=== PATIENT | female | born 1995 | race Native Hawaiian/Other Pacific Islander ===

== ENCOUNTER 2017-05-22 13:57 | Emergency (ER) | payer MEDICAID ==
[2017-05-22] MEDS ORDERED: Zofran 4 MG/2 ML VIAL IV ONE (14:17)
[2017-05-22] MEDS ORDERED: Sodium Chloride 0.9% 1000 ML 1,000 ML ONE ×2 (14:21→15:10)
[2017-05-22] MEDS ORDERED: Zofran 4 MG/2 ML VIAL ONE (14:22)
[2017-05-22] MEDS: Sodium Chloride 0.9% 1000 ML 1,000 ML IV STA ×2 (14:23→15:12)
--- NOTE | 2017-05-22 14:25 | ERPHSYRPT ---
- History of Present Illness Time Seen by Provider: 05/22/17 14:10 Historian: patient Exam Limitations: clinical condition Patient Subjective Stated Complaint: 7 weeks --first . states has been vomiting daily since 05/11--past 48 hrs she states she is vomiting 10+ times a day. oral membranes dry. poor oral intake. skin pink and warm Triage Nursing Assessment: see above Physician History: PATIENT IS A -1, PARA-0, -0, 7 WEEKS GESTATION COMPLAINS OF FREQUENT EPISODES OF EMESIS SINCE April HAD 5-10 EPISODES DAILY, FEELS LIGHT HEADED, MAY HAVE PASSED OUT YESTERDAY. DENIES FEVER, DIARRHEA, CHEST PAIN , ABDOMINAL PAIN. Timing/Duration: day(s) Activities at Onset: none Quality: other (DENIES PAIN) Pain Radiation: no radiation Severity of Pain-Max: none Severity of Pain-Current: none Associated Symptoms: nausea, vomiting Previous symptoms: no prior history Allergies/Adverse Reactions: No Known Drug Allergies Allergy (Unverified 05/22/17 14:07) Home Medications: Multivit with Calcium,Iron,Min [Women's Daily Formula] 1 each PO DAILY 05/22/17 [History] Hx Tetanus, Diphtheria Vaccination/Date Given: Yes Hx Influenza Vaccination/Date Given: No Hx Pneumococcal Vaccination/Date Given: No Immunizations Up to Date: Yes - Review of Systems Constitutional: No Fever, No Chills Eyes: No Symptoms Ears, Nose, & Throat: No Symptoms Respiratory: No Symptoms, No Cough, No Dyspnea Cardiac: No Chest Pain, No Edema, No Syncope Abdominal/Gastrointestinal: No Symptoms, Nausea, Vomiting, No Abdominal Pain, No Diarrhea Genitourinary Symptoms: No Symptoms, No Dysuria Musculoskeletal: No Symptoms, No Back Pain, No Neck Pain Skin: No Symptoms, No Rash Neurological: No Dizziness, No Focal Weakness, No Sensory Changes Psychological: No Symptoms Endocrine: No Symptoms All Other Systems: Reviewed and Negative - Past Medical History Pertinent Past Medical History: No - Past Surgical History Past Surgical History: No - Social History Smoking Status: Never smoker Exposure to second hand smoke: No Drug Use: none Patient Lives Alone: No - Female History Expected Date of Delivery: 12/19/17 - Nursing Vital Signs Nursing Vital Signs: Initial Vital Signs Temperature 98.9 F 05/22/17 14:02 Pulse Rate 64 05/22/17 14:02 Respiratory Rate 18 05/22/17 14:02 Blood Pressure 124/84 05/22/17 14:02 O2 Sat by Pulse Oximetry 98 05/22/17 14:02 Pain Scale Pain Intensity 0 - Physical Exam General Appearance: no apparent distress, alert Eye Exam: PERRL/EOMI, eyes nml inspection Ears, Nose, Throat Exam: normal ENT inspection, pharynx normal, moist mucous membranes Neck Exam: normal inspection, non-tender, supple, full range of motion Respiratory Exam: normal breath sounds, lungs clear, No respiratory distress Cardiovascular Exam: regular rate/rhythm, normal heart sounds Gastrointestinal/Abdomen Exam: soft, normal bowel sounds, No tenderness ( NONTENDER), No mass Back Exam: normal inspection, normal range of motion, No CVA tenderness, No vertebral tenderness Extremity Exam: normal inspection, normal range of motion, pelvis stable Neurologic Exam: alert, oriented x 3, cooperative, normal mood/affect, nml cerebellar function, sensation nml, No motor deficits Skin Exam: normal color, warm, dry SpO2: 98 Oxygen Delivery: Room Air - Course EKG Interpreted by Me: RATE, Other (SINUS ARRHYTHMIA RATE 63) Ordered Tests: Active Orders 24 hr Category Date Time Status EKG-ER Only STAT Care 05/22/17 14:20 Active IV Insertion STAT Care 05/22/17 14:17 Active Orthostatic Vital Signs STAT Care 05/22/17 14:17 Active CBC W DIFF Stat Lab 05/22/17 14:10 Completed CMP Stat Lab 05/22/17 14:10 Completed CULTURE,URINE Stat Lab 05/22/17 14:15 Received MAGNESIUM Stat Lab 05/22/17 14:10 Completed UA W/ MICROSCOPIC Stat Lab 05/22/17 14:15 Completed Medication Summary Discontinued Medications Generic Name Dose Route Start Last Admin Trade Name Freq PRN Reason Stop Dose Admin Sodium Chloride 1,000 mls @ 999 mls/hr 05/22/17 14:17 05/22/17 15:12 Sodium Chloride 0.9% 1000 Ml IV 05/22/17 15:17 999 mls/hr .Q1H1M STA Administration Sodium Chloride Confirm 05/22/17 14:21 Sodium Chloride 0.9% 1000 Ml Administered 05/22/17 14:22 Dose 1,000 mls @ ud .ROUTE .STK-MED ONE Sodium Chloride 1,000 mls @ 999 mls/hr 05/22/17 15:05 05/22/17 15:12 Sodium Chloride 0.9% 1000 Ml IV 05/22/17 16:05 999 mls/hr .Q1H1M STA Administration Sodium Chloride Confirm 05/22/17 15:10 Sodium Chloride 0.9% 1000 Ml Administered 05/22/17 15:11 Dose 1,000 mls @ ud .ROUTE .STK-MED ONE Ondansetron HCl 4 mg 05/22/17 14:17 05/22/17 14:23 Zofran 4 Mg/2 Ml Vial IV 05/22/17 14:18 4 mg STAT ONE Administration Ondansetron HCl Confirm 05/22/17 14:22 Zofran 4 Mg/2 Ml Vial Administered 05/22/17 14:23 Dose 4 mg .ROUTE .STK-MED ONE Lab/Rad Data: Laboratory Result Diagrams 05/22/17 14:10 05/22/17 14:10 Laboratory Results 05/22/17 05/22/17 05/22/17 Range/Units 14:15 14:10 14:10 WBC (4.0-10.5) K/mm3 RBC (4.1-5.4) M/mm3 Hgb (12.0-16.0) gm/dl Hct (35-47) % MCV (78-100) fl MCH (26-32) pg MCHC (32-36) g/dl RDW (11.5-14.0) % Plt Count (150-450) K/mm3 MPV (6-9.5) fl Gran % (36.0-66.0) % Lymphocytes % (24.0-44.0) % Monocytes % (0.0-12.0) % Eosinophils % (0.00-5.0) % Basophils % (0.0-0.4) % Basophils # (0-0.4) Sodium 139 (136-145) mEq/L Potassium 3.6 (3.5-5.1) mEq/L Chloride 102 (98-107) mEq/L Carbon Dioxide 23.3 (21-32) mEq/L Anion Gap 17.1 H (5-15) MEQ/L BUN 13 (9-20) mg/dL Creatinine 0.90 (0.55-1.30) mg/dl Estimated GFR > 60 ML/MIN Glucose 87 (70-110) MG/DL Calcium 9.8 (8.5-10.1) mg/dL Magnesium 2.0 (1.8-2.4) mg/dL Total Bilirubin 0.80 (0.2-1.0) mg/dL AST 14 L (15-37) U/L ALT 23 (12-78) U/L Alkaline Phosphatase 73 (46-116) U/L Serum Total Protein 8.4 H (6.4-8.2) gm/dL Albumin 4.5 (3.4-5.0) g/dL Ur Collection Type CCMS Urine Color YELLOW (YELLOW) Urine Appearance CLEAR (CLEAR) Urine pH 5.0 (5-6) Ur Specific [place] 1.025 (1.005-1.025) Urine Protein TRACE (Negative) Urine Ketones LARGE (NEGATIVE) Urine Blood 50 (0-5) Luis/ul Urine Nitrite NEGATIVE (NEGATIVE) Urine Bilirubin NEGATIVE (NEGATIVE) Urine Urobilinogen NORMAL (0-1) mg/dL Ur Leukocyte Esterase TRACE (NEGATIVE) Urine Microscopic RBC 0-2 (0-2) /HPF Urine Microscopic WBC 2-5 (0-5) /HPF Ur Epithelial Cells MANY (FEW) /HPF Urine Bacteria MODERATE (NEGATIVE) /HPF Urine Mucus MODERATE (NEGATIVE) /HPF Urine Glucose NEGATIVE (NEGATIVE) mg/dL Specimen Received 05-22-17 1430 05/22/17 Range/Units 14:10 WBC 19.9 H (4.0-10.5) K/mm3 RBC 5.00 (4.1-5.4) M/mm3 Hgb 15.2 (12.0-16.0) gm/dl Hct 43.9 (35-47) % MCV 87.8 (78-100) fl MCH 30.4 (26-32) pg MCHC 34.6 (32-36) g/dl RDW 12.1 (11.5-14.0) % Plt Count 349 (150-450) K/mm3 MPV 11.3 H (6-9.5) fl Gran % 75.9 H (36.0-66.0) % Lymphocytes % 16.5 L (24.0-44.0) % Monocytes % 6.7 (0.0-12.0) % Eosinophils % 0.5 (0.00-5.0) % Basophils % 0.4 (0.0-0.4) % Basophils # 0.07 (0-0.4) Sodium (136-145) mEq/L Potassium (3.5-5.1) mEq/L Chloride (98-107) mEq/L Carbon Dioxide (21-32) mEq/L Anion Gap (5-15) MEQ/L BUN (9-20) mg/dL Creatinine (0.55-1.30) mg/dl Estimated GFR ML/MIN Glucose (70-110) MG/DL Calcium (8.5-10.1) mg/dL Magnesium (1.8-2.4) mg/dL Total Bilirubin (0.2-1.0) mg/dL AST (15-37) U/L ALT (12-78) U/L Alkaline Phosphatase (46-116) U/L Serum Total Protein (6.4-8.2) gm/dL Albumin (3.4-5.0) g/dL Ur Collection Type Urine Color (YELLOW) Urine Appearance (CLEAR) Urine pH (5-6) Ur Specific [place] (1.005-1.025) Urine Protein (Negative) Urine Ketones (NEGATIVE) Urine Blood (0-5) Luis/ul Urine Nitrite (NEGATIVE) Urine Bilirubin (NEGATIVE) Urine Urobilinogen (0-1) mg/dL Ur Leukocyte Esterase (NEGATIVE) Urine Microscopic RBC (0-2) /HPF Urine Microscopic WBC (0-5) /HPF Ur Epithelial Cells (FEW) /HPF Urine Bacteria (NEGATIVE) /HPF Urine Mucus (NEGATIVE) /HPF Urine Glucose (NEGATIVE) mg/dL Specimen Received - Progress Progress Note: 05/22/17 14:24 PATIENT GIVEN ZOFRAN 4MG IV, IV NORMAL SALINE 1LITER/HR X 2 Counseled pt/family regarding: lab results, diagnosis, need for follow-up - Departure Time of Disposition: 14:35 Departure Disposition: Home Clinical Impression: Hyperemesis gravidarum Condition: Stable Critical Care Time: No Referrals: DOCTOR,NO FAMILY [Primary Care Provider] - Additional Instructions: BEGIN A FULL LIQUID DIET JUICES, CHEESES, SOUPS AND CRACKERS. ZOFRAN 4MG EVERY 4 HOURS NEEDED. PHENERGAN SUPPOSITORY 25MG EVERY 4 HOURS IF UNABLE TO TOLERATE ZOFRAN. CONSULT YOUR PRIMARY CARE PHYSICIAN IN 1 WEEK. RETURN TO EMERGENCY FOR VOMITING. Prescriptions: Promethazine HCl 25 mg Supp [Phenergan 25 mg Supp] 25 mg IN Q6H PRN PRN # 10 supp.rect PRN Reason: Nausea Ondansetron [Zofran Odt] 4 mg PO Q4-6HPRN PRN #8 tab.rapdis PRN Reason: Nausea
[2017-05-22 14:37] LABS: Bilirubin NEGATIVE (NEGATIVE); Blood 50 Ery/ul (0-5); COMPLETE URINE MICROSCOPIC? YES; Collection Type CCMS; Glucose NEGATIVE (NEGATIVE); Leukocyte Esterase TRACE (NEGATIVE)
[2017-05-22 14:38] LABS: ADD URINE CULTURE? YES (NO); Bacteria MODERATE /HPF (NEGATIVE); Epithelial Cells MANY /HPF (FEW); Mucus MODERATE /HPF (NEGATIVE)
[2017-05-22 14:43] LABS: ALBUMIN 4.5 g/dL (3.4-5.0); ALKALINE PHOSPHATASE 73 U/L (46-116); ANION GAP 17.1 MEQ/L (5-15); BLOOD UREA NITROGEN 13 mg/dL (9-20); CHLORIDE 102 mEq/L (98-107); Carbon Dioxide 23.3 mEq/L (21-32); Glucose 87 MG/DL (70-110); Potassium 3.6 mEq/L (3.5-5.1); SGOT/AST 14 U/L (15-37); SGPT/ALT 23 U/L (12-78); SODIUM 139 mEq/L (136-145); Total Protein 8.4 gm/dL (6.4-8.2)
[2017-05-22 14:44] LABS: BASOPHIL % 0.4 % (0.0-0.4); Eosinophil % 0.5 % (0.00-5.0); Granulocytes % 75.9 % (36.0-66.0); Lymphocytes % 16.5 % (24.0-44.0); Mean Cell Volume 87.8 fl (78-100); Mean Corpuscular Hemoglobin 30.4 pg (26-32); Mean Platelet Volume 11.3 fl (6-9.5); Monocytes % 6.7 % (0.0-12.0); Platelet Count 349 K/mm3 (150-450); Red Cell Distribution Width 12.1 % (11.5-14.0); White Blood Count 19.9 K/mm3 (4.0-10.5)
[2017-05-22] MEDS ORDERED: Sodium Chloride 0.9% 1000 ML 1,000 ML IV STA (15:05)
[2017-05-22 16:24] VITALS: O2SAT 98
[2017-05-22 16:44] VITALS: BP 116/70; PULSE 76
== END 2017-05-22 16:45 | disposition home or self-care (01) ==
LOC: ED 13:57
DX: O21.0 Mild hyperemesis gravidarum (principal)
CPT/HCPCS: 36000; 36415; 80053; 81000; 83735; 85025; 87086; 93005; 96360; 96361; 96374; 99284; J2405

== ENCOUNTER 2017-05-25 02:23 | Emergency (ER) | payer MEDICAID ==
[2017-05-25] MEDS ORDERED: Zofran 4 MG/2 ML VIAL IV ONE (02:32)
[2017-05-25] MEDS ORDERED: Sodium Chloride 0.9% 1000 ML 1,000 ML IV STA (02:32)
[2017-05-25] MEDS ORDERED: Sodium Chloride 0.9% 1000 ML 1,000 ML ONE (02:38)
[2017-05-25] MEDS ORDERED: Zofran 4 MG/2 ML VIAL ONE (02:38)
--- NOTE | 2017-05-25 02:39 | ERPHSYRPT ---
- History of Present Illness Time Seen by Provider: 05/25/17 02:27 Source: patient, family Exam Limitations: no limitations Physician History: female returning for N&V; no pain; no bleeding; recurrent episode; no fever; no symptoms; no travel; no exposures; prior hx of same Timing/Duration: today, gradual onset, worse Severity: moderate Modifying Factors: Improves With: eating, medication Associated Symptoms: nausea, vomiting Allergies/Adverse Reactions: No Known Drug Allergies Allergy (Unverified 05/22/17 14:07) Home Medications: Multivit with Calcium,Iron,Min [Women's Daily Formula] 1 each PO DAILY 05/22/17 [History] Hx Tetanus, Diphtheria Vaccination/Date Given: Yes Hx Influenza Vaccination/Date Given: No Hx Pneumococcal Vaccination/Date Given: No - Review of Systems Constitutional: No Symptoms Eyes: No Symptoms Ears, Nose, & Throat: No Symptoms Respiratory: No Cough, No Dyspnea, No Wheezing Cardiac: No Chest Pain, No Palpitations, No Syncope Abdominal/Gastrointestinal: Nausea, Vomiting, No Abdominal Pain, No Diarrhea, No Constipation Genitourinary Symptoms: No Symptoms Musculoskeletal: No Symptoms Skin: No Symptoms Neurological: No Symptoms Psychological: No Symptoms Endocrine: No Symptoms Hematologic/Lymphatic: No Symptoms Immunological/Allergic: No Symptoms - Past Medical History Pertinent Past Medical History: No - Past Surgical History Past Surgical History: No - Social History Smoking Status: Never smoker Exposure to second hand smoke: No Alcohol Use: Socially Drug Use: none Patient Lives Alone: No Significant Family History: no pertinent family hx - Female History Hx Now: Yes (2-3 months) Expected Date of Delivery: 01/09/18 Gestational Age: 3-22-18 - Nursing Vital Signs Nursing Vital Signs: Initial Vital Signs Temperature 98.2 F 05/25/17 02:24 Pulse Rate 76 05/25/17 02:24 Respiratory Rate 18 05/25/17 02:24 Blood Pressure 138/79 05/25/17 02:24 O2 Sat by Pulse Oximetry 98 05/25/17 02:24 Pain Scale Pain Intensity 0 - Physical Exam General Appearance: mild distress, alert Eye Exam: PERRL/EOMI, eyes nml inspection, No photophobia Ears, Nose, Throat Exam: normal ENT inspection, TMs normal, pharynx normal, moist mucous membranes Neck Exam: normal inspection, non-tender, supple, full range of motion, No meningismus Respiratory Exam: normal breath sounds, lungs clear, airway intact, No chest tenderness, No respiratory distress Cardiovascular Exam: regular rate/rhythm, normal heart sounds, normal peripheral pulses, capillary refill <2 sec, No murmur Gastrointestinal/Abdomen Exam: soft, normal bowel sounds, No tenderness, No guarding, No rebound, No hepatomegaly Pelvic Exam: deferred Rectal Exam: deferred Back Exam: normal inspection, normal range of motion, No CVA tenderness, No vertebral tenderness, No rash Extremity Exam: normal inspection, normal range of motion, No pedal edema Neurologic Exam: alert, oriented x 3, cooperative, inspector materials and processes II-XII nml as tested, normal mood/affect, nml cerebellar function, nml station & gait, other (no hyperreflexia) Skin Exam: normal color, warm, dry, No rash - Course Nursing assessment & vital signs reviewed: Yes Ordered Tests: Active Orders 24 hr Category Date Time Status IV Insertion STAT Care 05/25/17 02:39 Active Re-Check Vital Signs STAT Care 05/25/17 02:32 Active Medication Summary Generic Name Dose Route Start Last Admin Trade Name Freq PRN Reason Stop Dose Admin Sodium Chloride 1,000 mls @ 999 mls/hr 05/25/17 02:32 05/25/17 02:41 Sodium Chloride 0.9% 1000 Ml IV 05/25/17 03:32 999 mls/hr .Q1H1M STA Administration Discontinued Medications Generic Name Dose Route Start Last Admin Trade Name Freq PRN Reason Stop Dose Admin Sodium Chloride Confirm 05/25/17 02:38 Sodium Chloride 0.9% 1000 Ml Administered 05/25/17 02:39 Dose 1,000 mls @ ud .ROUTE .STK-MED ONE Ondansetron HCl 4 mg 05/25/17 02:32 05/25/17 02:41 Zofran 4 Mg/2 Ml Vial IV 05/25/17 02:33 4 mg STAT ONE Administration Ondansetron HCl Confirm 05/25/17 02:38 Zofran 4 Mg/2 Ml Vial Administered 05/25/17 02:39 Dose 4 mg .ROUTE .STK-MED ONE - Progress Progress: improved (after meds and IV fluids), re-examined (after meds and IV fluids) Progress Note: 05/25/17 02:40 significant other at bedside; will start an IV and hydrate and medicate for N&V ; monitor and recheck; treatment plan discussed 05/25/17 03:15 rechecked adn much improved after meds and IV fluids; instructions given Counseled pt/family regarding: diagnosis, need for follow-up - Departure Time of Disposition: 03:30 Departure Disposition: Home Clinical Impression: Hyperemesis gravidarum Condition: Stable Critical Care Time: No Referrals: RICKY SUBRAMANIAN [Primary Care Provider] - Instructions: Nausea -- Adult, Vomiting -- Adult, Hyperemesis Gravidarum Additional Instructions: clear fluids; frequent- small amounts; crackers; take meds Follow-up with family doctor as directed. Call for appointment. Return if any problems. If you smoke please stop. Call or follow up with your family doctor for assistance if you need it to stop. Please wear your seatbelt when driving. Have a nice day. Thank you for allowing us to participate in your care today. :o) Dr Wiley Olivas Prescriptions: Promethazine HCl 25 mg Supp [Phenergan 25 mg Supp] 25 mg RC Q6-8HPRN PRN # 10 supp.rect PRN Reason: Nausea
[2017-05-25 03:06] VITALS: O2SAT 99
[2017-05-25 03:32] VITALS: BP 101/58; PULSE 68
== END 2017-05-25 03:40 | disposition home or self-care (01) ==
LOC: ED 02:23
DX: O21.0 Mild hyperemesis gravidarum (principal)
CPT/HCPCS: 36000; 96360; 96374; 99284; J2405